=== PATIENT | female | born 1960 | race Hispanic/Latino ===

== ENCOUNTER 2017-04-14 21:22 | Emergency (ER) | payer BC ==
[2017-04-14 21:36] VITALS: TEMP 98; O2SAT 98
[2017-04-14] MEDS ORDERED: Oxycodone/Acetaminophen 5/325 mg Tab PO STA (22:10)
[2017-04-14] MEDS ORDERED: TDAP Vaccine 0.5 mL Syr IM ONE (22:10)
--- NOTE | 2017-04-14 22:54 | ED PDOC ---
Arrival/HPI - General Chief Complaint: Abnormal Skin Integrity Time Seen by Provider: 04/14/17 22:09 Historian: Patient - History of Present Illness Narrative History of Present Illness (Text): 04/14/17 22:38 56-year-old female presents today with Laceration to the volar aspect of the right hand status post injury. Patient states she tripped and fell forward landing on the right hand. She is complaining of pain along the volar aspect of the hand over the fourth and fifth metacarpals. Unsure of her last tetanus shot. Incident occurred prior to arrival. Patient denies wrist pain. Patient denies hitting her head. Patient denies headache dizziness or weakness. No chest pain or shortness of breath. Time/Duration: Prior to Arrival Symptom Onset: Sudden Symptom Course: Unchanged Past Medical History - Provider Review Nursing Documentation Reviewed: Yes - Travel History Have you recently traveled outside [place] w/in the past 3 mons?: No - Tetanus Immunization Tetanus Immunization: Unknown - Psychiatric Hx Substance Use: No Family/Social History - Physician Review Nursing Documentation Reviewed: Yes Family/Social History: Unknown Family HX Smoking Status: Never Smoked Hx Alcohol Use: No Hx Substance Use: No Allergies/Home Meds Allergies/Adverse Reactions: Allergies No Known Allergies Allergy (Verified 04/14/17 21:35) Review of Systems - Review of Systems Constitutional: absent: Fatigue, Fevers Respiratory: absent: SOB, Cough Cardiovascular: absent: Chest Pain, Palpitations Gastrointestinal: absent: Nausea, Vomiting Musculoskeletal: Arthralgias Skin: Laceration Neurological: absent: Headache, Dizziness Psychiatric: absent: Anxiety, Depression Physical Exam Vital Signs Reviewed: Yes Vital Signs Temp Pulse Resp BP Pulse Ox 04/14/17 21:36 98 F 76 18 147/85 98 Temperature: Afebrile Blood Pressure: Normal Pulse: Regular Respiratory Rate: Normal Appearance: Positive for: Well-Appearing, Non-Toxic, Comfortable Pain Distress: None Mental Status: Positive for: Alert and Oriented X 3 - Systems Exam Head: Present: Atraumatic Neck: Present: Normal Range of Motion Respiratory/Chest: Present: Clear to Auscultation Cardiovascular: Present: Regular Rate and Rhythm Upper Extremity: Present: Normal ROM, NORMAL PULSES, Tenderness (right hand; there is a jagged 5cm laceration along volar aspect of hand over the 4th and 5th metacarpals. no active bleeding; full rom of hand. sensation and distal pulses intact. cap refill <2. ), Swelling, Neurovascularly Intact, Capillary Refill < 2s. No: Erythema, Deformity Neurological: Present: GCS=15 Skin: Present: Warm, Dry, Normal Color Psychiatric: Present: Alert, Oriented x 3 Medical Decision Making ED Course and Treatment: 04/14/17 22:55 56yr old female with right hand injury and laceration s/p fall. tetanus updated. percocet given for pain wound irrigated with copious amounts of NS using high pressure irrigation. surgical tech dr. goodman to see patient at bedside. dr. goodman discussed case with dr. wood; laceration repair by dr. goodman; pt to f/u with dr. wood in 7 days. xray right hand; no fracture, no fb 04/15/17 00:08 Patient is nontoxic well appearing in no distress. Vital signs are stable. Wound irrigated well with high pressure irrigation Tetanus updated. keflex; po Patient was advised to keep the wound clean and dry, apply bacitracin twice daily. Advised to take abx as prescribed. Advised to return immediately if signs of infection develop or return if any other concerning symptoms develop. Advised f/u with dr. wood in 1 week. Impression: Laceration, hand Motrin every 6 hours as needed for pain Keflex; 1 capsule 4 times daily x 7 days. Keep the wound clean and dry, apply bacitracin twice daily Return in 7-10days for suture removal Return immediately if signs of infection develop: High fevers, increasing pain, redness, swelling, purulent discharge Follow up with the dr. wood within the week. Followup with primary care physician within the next 2 days Return if any other concerning symptoms develop - RAD Interpretation Radiology Orders: 04/14/17 22:10 HAND RIGHT 3 VIEWS [RAD] Stat - Medication Orders Current Medication Orders: Discontinued Medications Lidocaine HCl (Lidocaine 1% (20ml)) Confirm Administered Dose 20 ml .ROUTE .STK- MED ONE Stop: 04/14/17 23:29 Oxycodone/Acetaminophen (Percocet 5/325 Mg Tab) 1 tab PO STAT STA Stop: 04/14/17 22:11 Last Admin: 04/14/17 22:30 Dose: 1 tab Re-Assess: SAMANTHA Pain Assessment Document 04/14/17 23:30 TA (Rec: 04/14/17 23:41 TA [id number]) Pain Reassessment Is this a pain reassessment? Yes Sleep Is patient sleeping during reassessment? No Presence of Pain Presence of Pain No Tetanus/Reduced Diphtheria/Acell Pertussis (Boostrix Vaccine Inj) 0.5 ml IM .ONCE ONE Stop: 04/14/17 22:11 Last Admin: 04/14/17 22:34 Dose: 0.5 ml Disposition/Present on Arrival - Present on Arrival Any Indicators Present on Arrival: No History of DVT/PE: No History of Uncontrolled Diabetes: No Urinary Catheter: No History of Decub. Ulcer: No History Surgical Site Infection Following: None - Disposition Have Diagnosis and Disposition been Completed?: Yes Diagnosis: Laceration of hand Disposition: HOME/ ROUTINE Disposition Time: 00:14 Patient Plan: Discharge Patient Problems: Current Active Problems Problem Status Onset Laceration of hand Acute Condition: GOOD Discharge Instructions (ExitCare): Laceration (ED) Additional Instructions: Motrin every 6 hours as needed for pain Keflex; 1 capsule 4 times daily x 7 days. Keep the wound clean and dry, apply bacitracin twice daily Return in 7-10days for suture removal Return immediately if signs of infection develop: High fevers, increasing pain, redness, swelling, purulent discharge Follow up with the dr. wood within the week. Followup with primary care physician within the next 2 days Return if any other concerning symptoms develop Prescriptions: Cephalexin [Keflex] 500 mg PO QID #28 capsule Ibuprofen [Motrin] 600 mg PO Q6H PRN #20 tab PRN Reason: pain/fever reduction Referrals: Ignacio Geronimo MD [Primary Care Provider] - Follow up with primary Raul Wood MD [Staff Provider] - Follow up with primary Lebron Mackay MD [Staff Provider] - Follow up with primary Forms: [employer] (Sudanese), WORK NOTE
[2017-04-14] MEDS ORDERED: Lidocaine 1% Inj (20ml) ONE (23:28)
--- NOTE | 2017-04-15 00:14 | CP.PCM.CON ---
History of Present Illness - History of Present Illness History of Present Illness: General surgery Consult note for Dr. Hanna Sethi, PGY-1 Pt S & E at bedside. 56F w/no sig PMH consulted for Right hand laceration. Pt reports she was walking on concrete at approx 9pm, was flagged down by family, turned quickly and ended up falling with her right hand catching her. Fall resulted in approx 4cm non linear, jagged full thickeness laceration of palmar aspect of hand. Pt was brought to ED for evaluation. Admits to right hand pain and bleeding. Denies LOC, loss of strength in hand, N/V/F/C, SOB, CP, ab pain, palpitations, PAREDES, trauma to other aspects of body, other complaints. PMH: Denies PSH: Denies All: NKDA SH: Admits to social ETOH use, denies tobacco or illicit drug use. Review of Systems - Review of Systems All systems: reviewed and no additional remarkable complaints except - Constitutional Constitutional: absent: Chills, Fever, Headache, Weakness - EENT Eyes: absent: Change in Vision Ears: absent: Dizziness Nose/Mouth/Throat: absent: Sore Throat - Cardiovascular Cardiovascular: absent: Chest Pain, Palpitations - Gastrointestinal Gastrointestinal: absent: Abdominal Pain, Nausea, Vomiting - Genitourinary Genitourinary: absent: Change in Urinary Stream - Integumentary Integumentary: Wounds (right palmar aspect laceration) - Neurological Neurological: absent: Dizziness Past Patient History - Tetanus Immunizations Tetanus Immunization: Unknown - Past Social History Smoking Status: Never Smoked - PSYCHIATRIC Hx Substance Use: No - SURGICAL HISTORY Hx Surgeries: No Meds Home Medications: Home Medication List Medication Instructions Recorded Confirmed Type Cephalexin [Keflex] 500 mg PO QID #28 capsule 04/15/17 Rx Ibuprofen [Motrin] 600 mg PO Q6H PRN #20 tab 04/15/17 Rx Allergies/Adverse Reactions: Allergies Allergy/AdvReac Type Severity Reaction Status Date / Time No Known Allergies Allergy Verified 04/14/17 21:35 Physical Exam - Constitutional Appears: Non-toxic, No Acute Distress - Head Exam Head Exam: ATRAUMATIC, NORMAL INSPECTION, NORMOCEPHALIC - Eye Exam Eye Exam: EOMI, Normal appearance - ENT Exam ENT Exam: Mucous Membranes Moist, Normal Exam - Neck Exam Neck exam: Positive for: Full Rom, Normal Inspection - Respiratory Exam Respiratory Exam: Clear to Auscultation Bilateral, NORMAL BREATHING PATTERN - Cardiovascular Exam Cardiovascular Exam: REGULAR RHYTHM, +S1, +S2 - GI/Abdominal Exam GI & Abdominal Exam: Normal Bowel Sounds, Soft - Extremities Exam Extremities exam: Positive for: full ROM. Negative for: normal inspection ( Right palmar aspect of hand with non linear, jagged laceration, approx 4cm long , full thickness laceration) - Expanded Upper Extremities Exam Right Neuro motor exam: thumb abduction, thumb IP flexion intact, thumb opposition intact Neurosensory exam: median nerve intact, radial nerve intact Vascular exam: absent: vascular compromise - Back Exam Back exam: NORMAL INSPECTION - Neurological Exam Neurological exam: Alert, CN II-XII Intact, Oriented x3 - Psychiatric Exam Psychiatric exam: Normal Affect, Normal Mood - Skin Skin Exam: Dry, Normal Color, Warm Additional comments: See extremity exam for skin findings Results - Vital Signs Recent Vital Signs: Last Vital Signs Temp 98 F 04/14/17 21:36 Pulse 76 04/14/17 21:36 Resp 18 04/14/17 21:36 BP 147/85 04/14/17 21:36 Pulse Ox 98 04/14/17 21:36 Assessment & Plan - Assessment and Plan (Free Text) Assessment: 56F w/4 cm R palmar aspect full thickness laceration Plan: Laceration repair wound irrigation Lidocaine 4-0 Nylon Pt to be d/c'd on antibiotic as per ED Pt to FU w/Dr. Soriano in his office in 10-14 days for suture removal DW attending Jossie, PGY-1 - Date & Time Date: 04/15/17 Time: 00:17 Procedure: Wound Repair - Time Performed Time Performed: 23:55 - Time Out Time Out: Side verified, Site verified, Patient ID confirmed, Sterile procedures obs. - Consent Obtained Consent obtained: Written - Performed by Performed by: Mid-level Provider - Indications Indication(s):: Laceration - Location Location:: Right, Hand (palmar aspect) Shape:: Other (jagged, linear) Dimensions Length cm: 4cm Dimensions width cm: 1cm Depth:: Epidermis - Anesthetic Technique Anesthetic Technique: Topical Local/Regional Anesthetic:: Lidocaine 1% - Wound Examination Wound Examination:: Contaminated - Debris Debris:: Asphalt - Irrigated Irrigated with ml of normal saline: 3000 - Complexity Complexity:: Simple (one layer) - Wound repair method Sutures:: # (8), Size (4-0), Type (Nylon), Technique (Simple interrupted) - Muscle repiar layer closed with Muscle repair layer closed with:: Dressing applied, Tetanus ordered - Complications Complications: None - Patient tolerated procedure Patient Tolerated Procedure:: Well
[2017-04-15 00:39] VITALS: BP 133/78; PULSE 82; RESP 15
--- NOTE | 2017-04-15 10:46 | RAD ---
PROCEDURE: Right Hand Radiographs. HISTORY: fall/ hand lac COMPARISON: None. FINDINGS: BONES: No evidence of acute displaced fracture nor dislocation. The osseous structures intact. There is a small elliptical shaped corticated calcific density within the soft tissues adjacent to the radial aspect DIP joint of right thumb with what may represent a 2nd tiny calcification as well. Findings may represent some all posttraumatic mineralization. JOINTS: Joint spaces are relatively preserved. No significant osteoarthritic changes. SOFT TISSUES: No significant subcutaneous emphysema. No radiopaque foreign bodies are identified. OTHER FINDINGS: None. No evidence of acute displaced fracture nor dislocation. IMPRESSION:
== END 2017-04-15 00:30 | disposition home or self-care (01) ==
LOC: ED 21:22
DX: S61.411A Laceration without foreign body of right hand, initial encounter (principal); W01.0XXA Fall on same level from slipping, tripping and stumbling without subsequent striking against object, initial encounter; Y93.89 Activity, other specified; Y92.89 Other specified places as the place of occurrence of the external cause; Z23 Encounter for immunization